=== PATIENT | male | born 1990 | race Two or more races ===

== ENCOUNTER 2022-12-26 14:02 | Emergency (ER) | payer OTHER ==
[~2022-12-26] VITALS: Ht 188 cm; Wt 99.8 kg
[2022-12-26] MEDS ORDERED: ZYRTEC10 MG PO (17:21)
[2022-12-26] MEDS ORDERED: TUSNEL LIQUID178 ML PO (17:21)
[2022-12-26] MEDS ORDERED: ZITHROMAX500 MG PO (17:21)
[2022-12-26] MEDS ORDERED: DOLOGEN CAPLET1 EACH PO (17:21)
== END 2022-12-26 17:27 | disposition home or self-care (01) ==
LOC: ER 14:02
DX: B34.9 Viral infection, unspecified (principal); R53.81 Other malaise; Z20.822 Contact with and (suspected) exposure to COVID-19